=== PATIENT | male | born 1955 | race Caucasian/White ===

== ENCOUNTER 2023-10-16 23:37 | Inpatient (IN) | payer OTHER, BC ==
[2023-10-16 23:42] VITALS: BMI 27.9
[2023-10-16] MEDS ORDERED: FAMOTIDINE 20 MG/50 ML IVPB 20 MG/50 ML MG IVPB ONE (23:46)
[2023-10-17] MEDS ORDERED: FAMOTIDINE 20 MG/50 ML IVPB 20 MG/50 ML MG IVPB ONE (00:07)
[2023-10-17] MEDS ORDERED: ONDANSETRON 4 MG/2 ML VIAL ONE (00:07)
[2023-10-17] MEDS: SODIUM CHLORIDE 0.9% 500 ML INFUS.BAG IV ONE ×2 (00:15→02:03)
[2023-10-17] MEDS: ONDANSETRON 4 MG/2 ML VIAL IVPUSH ONE (00:15)
[2023-10-17] MEDS: FAMOTIDINE 20 MG/50 ML IVPB 20 MG/50 ML MG IVPB ONE (00:46)
[2023-10-17 00:58] LABS: BASO % 0.1 % (0-2.0); EOS % 0.9 % (0-4.5); HEMATOCRIT 46.1 % (35.4-49); HEMOGLOBIN 15.8 GM/dL (11.7-16.9); LYMPH % 2.6 % (8-40); MCH 27.8 pg (25.7-33.7); MCHC 34.3 g/dl (32.0-35.9); MEAN PLT VOLUME 10.7 fl (7.5-11.1); MONO % 7.1 % (3.8-10.2); NEUT % 89.3 % (42.8-82.8); PLATELET COUNT 206 10^3/uL (134-434); RBC 5.69 M/mm3 (4.00-5.60); RDW 13.5 % (11.9-15.9); WHITE BLOOD COUNT 18.7 K/mm3 (4.0-10.0)
[2023-10-17 01:17] LABS: POTASSIUM 5.3 mmol/L (3.5-5.1)
[2023-10-17 01:21] LABS: ALBUMIN 3.9 g/dl (3.4-5.0); BLOOD UREA NITROGEN 28.6 mg/dL (7-18); CALCIUM 9.1 mg/dL (8.5-10.1); MAGNESIUM 1.9 mg/dL (1.8-2.4)
[2023-10-17 01:24] LABS: CREATININE 1.4 mg/dL (0.55-1.3)
[2023-10-17 01:26] LABS: BILIRUBIN,TOTAL 0.8 mg/dL (0.2-1); TOT PROT 7.2 g/dl (6.4-8.2)
[2023-10-17] MEDS: HEPARIN NA (PORCINE) 5,000 UNITS/ML 1ML VIAL SQ SCH (05:32)
[2023-10-17] MEDS: SODIUM CHLORIDE 1,000 ML IV SCH (06:05)
[2023-10-17 06:25] LABS: BASO % 0.2 % (0-2.0); EOS % 0.3 % (0-4.5); HEMATOCRIT 43.1 % (35.4-49); HEMOGLOBIN 14.4 GM/dL (11.7-16.9); MCH 27.3 pg (25.7-33.7); MCHC 33.3 g/dl (32.0-35.9); MEAN CELL VOLUME 82.2 fl (80-96); MEAN PLT VOLUME 10.7 fl (7.5-11.1); MONO % 7.3 % (3.8-10.2); NEUT % 89.2 % (42.8-82.8); PLATELET COUNT 208 10^3/uL (134-434); RBC 5.25 M/mm3 (4.00-5.60); RDW 13.5 % (11.9-15.9)
[2023-10-17 06:32] LABS: POTASSIUM 4.7 mmol/L (3.5-5.1)
[2023-10-17 06:38] LABS: ALBUMIN 3.2 g/dl (3.4-5.0); CALCIUM 8.4 mg/dL (8.5-10.1)
[2023-10-17 06:41] LABS: CREATININE 1.2 mg/dL (0.55-1.3); PHOSPHOROUS 3.2 mg/dL (2.5-4.9)
[2023-10-17 06:43] LABS: BILIRUBIN,TOTAL 0.7 mg/dL (0.2-1); TOT PROT 6.2 g/dl (6.4-8.2)
[2023-10-17] MEDS ORDERED: CEFTRIAXONE 1 GM/50 ML BAG ONE (10:49)
[2023-10-17] MEDS: CEFTRIAXONE 1 GM in DEXTROSE 5%-WATER - 50 ML IVPB SCH (10:55)
[2023-10-17 13:27] VITALS: BP 115/67; PULSE 82; RESP 20; TEMP 98.1
== END 2023-10-17 14:25 | disposition home or self-care (01) | DRG 392 ==
LOC: JER 23:37 → JERBED 10-17 02:15 → OBSVTOIN 10-17 04:53
PROVIDERS: ADMIT Internal Medicine; ATTEND Internal Medicine
DX: K52.9 Noninfective gastroenteritis and colitis, unspecified (principal); E87.1 Hypo-osmolality and hyponatremia; N17.9 Acute kidney failure, unspecified; I10 Essential (primary) hypertension; E86.0 Dehydration; E87.6 Hypokalemia; R73.9 Hyperglycemia, unspecified; D72.829 Elevated white blood cell count, unspecified; I95.1 Orthostatic hypotension
CPT/HCPCS: 0241U-QW; 36415; 70450-TC; 71045-TC-FY; 74177-TC; 80053; 83690; 83735; 84100; 84484; 85025; 87040; 93005; 93010; 99285-25; G0378; J1644; Q9967